=== PATIENT | female | born 1970 ===

== ENCOUNTER 2020-10-31 12:44 | Outpatient (REF) | payer OTHER, SELFPAY ==
--- NOTE | 2020-10-31 14:30 | PAPFT_PTH ---
PATIENT: Sanjuanita Montes De Oca LOC: [facility]#:[id number] AGE/SX: 50/F ROOM: RE10/31/[address]: Korin Summers : 1970 BED: DIS: 10/31/2020 SPEC #: [id number] RECD: 11/01/20 12:47 STATUS: YAZMIN RESharyn #: [id number] KEREN: 10/31/20 14:[address]: Korin Summers DEPT: [facility] Cytology RECD BY: Leena Hanson ENTERED: 11/01/20 12:47 SP TYPE: PAPFT OT DR: Unknown,Unknown Tissues: 1 - CX/ENDOCX FOR PAP SMEARS Procedures: PAP THIN PREP/[facility] Screening Comments: [id number]
--- OUTSIDE RECORDS SUMMARY | 2020-11-01 12:46 | XMS_ITS ---
:1970 Author Organization [facility] Address [address] [place], [place] [id number] Care Team Providers Name Role Phone JARROD Unavailable Unavailable PROBLEMS Unknown Problems ALLERGIES No Information ENCOUNTERS Encounter Location Date Diagnosis [facility] [address], [place], [place] [id number] [place] [facility] [address] May, [place], [place] [id number] [facility] [address], [place] [id number] [facility] [address], [place] [id number] [facility] [address], [place] [id number] [facility] [address], [place] [id number] [facility] [address] Jan, [place] [id number] [facility] [address] Jan, [place] [id number] [facility] [address], [place] [id number] [facility] [address], [place] [id number] [place] [facility] [address] Sep, [place] [id number] [facility] [address], [place] [id number] [facility] [address] Jul, [place], [place] [phone] [facility] [address] Jan, Encounter fo r [place], [place] [id number] immuni zation Z23 IMMUNIZATIONS Vaccine Route Administration Date Status Influenza >6 months IM Intramuscular Feb 09, 2019 Administere d SOCIAL HISTORY Never Assessed REASON FOR REFERRAL FUNCTIONAL STATUS PLAN OF CARE Activity Details Follow Up prn Reason: VITAL SIGNS MEDICATIONS Unknown Medications PROCEDURES Procedure Date Ordered Result Body Site IMMUNIZATION ADMIN Feb 09, 2019 FLU VAC NO PRSV 4 ERICH 3 YRS Feb 09, 2019 RESULTS Name Result Date Reference Range Colonoscopy or Sigmoidiscopy Performed 2018-02-20 9 Colonoscopy/Sigmoidoscopy Result normal REASON FOR VISIT New Referral Request, Re:RE:, dominic's hands, Re:RE:dominic today, dominic today, tiffanie , Re:RE:[facility]inic [facility], [facility], maybe a repeat message, tiffanie's eyebrows, [facility], flu shot
== END 2020-10-31 12:45 | disposition home or self-care (01) ==
LOC: NCHCN 12:44
PROVIDERS: Visit Provider Naturopath
DX: Z12.4 Encounter for screening for malignant neoplasm of cervix (principal); Z01.419 Encounter for gynecological examination (general) (routine) without abnormal findings
CPT/HCPCS: 88142